=== PATIENT | female | born 1945 | race Caucasian/White ===

== ENCOUNTER → 2024-05-20 13:06 | Outpatient (REF) | payer MEDICARE, OTHER, SELFPAY | LOC: HWRAD 13:06 | PROVIDERS: ATTENDING PHYSICIAN Internal Medicine | DX: M54.2 Cervicalgia (principal) | CPT/HCPCS: 72050 ==

== ENCOUNTER → 2024-08-09 12:10 | Outpatient (REF) | payer MEDICARE, OTHER, SELFPAY | LOC: HWWDC 12:10 | PROVIDERS: ATTENDING PHYSICIAN Internal Medicine | DX: Z12.31 Encounter for screening mammogram for malignant neoplasm of breast (principal) | CPT/HCPCS: 77063; 77067 ==

== ENCOUNTER → 2024-09-23 11:29 | Outpatient (REF) | payer MEDICARE, OTHER, SELFPAY | LOC: MRI 3T 11:29 | PROVIDERS: ATTENDING PHYSICIAN Internal Medicine | DX: M54.12 Radiculopathy, cervical region (principal) | CPT/HCPCS: 72141 ==

== ENCOUNTER → 2025-05-17 10:38 | Outpatient (REF) | payer MEDICARE, OTHER, SELFPAY | LOC: HWRAD 10:38 | PROVIDERS: ATTENDING PHYSICIAN Internal Medicine Nephrology; FAMILY PHYSICIAN Internal Medicine | DX: N28.1 Cyst of kidney, acquired (principal) | CPT/HCPCS: 76775 ==

== ENCOUNTER → 2025-10-11 10:36 | Outpatient (REF) | payer MEDICARE, OTHER, SELFPAY | LOC: HWWDC 10:36 | PROVIDERS: ATTENDING PHYSICIAN Internal Medicine | DX: Z12.31 Encounter for screening mammogram for malignant neoplasm of breast (principal) | CPT/HCPCS: 77063; 77067 ==